=== PATIENT | female | born 1995 | race Caucasian/White ===

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

== ENCOUNTER 2017-06-29 05:43 | Inpatient (IN) | payer OTHER ==
[2017-06-29] VITALS (40 sets, daily range): BP systolic 106–148; BP diastolic 67–99; PULSE 60–102; TEMP 98.2–98.6
[~2017-06-29] VITALS: Ht 162.6 cm; Wt 72.7 kg
[~2017-06-29 05:43] MED LIST: BIRTH CONTROL; BIRTH CONTROL PO
[2017-06-29 07:41] LABS: BASO % 0.3 % (0.0-2.0); EOS # 0.1 (0.0-0.7); EOS % 0.5 % (0-4.0); GRAN # 8.9 (1.4-6.5); GRAN % 77.4 % (42.2-75.2); HEMOGLOBIN 12.7 g/dl (12.0-15.0); LYMPH # 1.6 (1.2-3.4); LYMPH % 13.4 % (20.0-51.0); MEAN CELL VOLUME 88 fl (80.0-95.0); MEAN CORPUSCULAR HEMOGLOBIN 31 pg (26.0-32.0); MEAN CORPUSCULAR HGB CONC 35 g/dl (33.0-37.0); MEAN PLATELET VOLUME 11.2 fl (7.4-10.4); MONO # 0.9 (0.1-0.6); MONO % 7.9 % (1.7-9.3); PLATELET COUNT 205 K/mm3 (130-400); RED BLOOD COUNT 4.16 M/mm3 (4.10-5.30); WHITE BLOOD COUNT 11.5 K/mm3 (4.8-10.8)
[2017-06-29 07:42] LABS: HEMATOCRIT 36.7 % (35.0-45.0)
[2017-06-29 07:53] LABS: ADJUSTED CALCIUM 9.3 mg/dL (8.4-10.2); ALBUMIN 3.3 gm/dL (3.5-5.0); BILIRUBIN,TOTAL 0.4 mg/dL (0.0-1.0); CALCIUM 8.7 mg/dL (8.4-10.2); CREATININE, serum 0.73 mg/dL (0.52-1.25); POTASSIUM 3.6 mmol/L (3.4-5.0); TOTAL PROTEIN 6.2 gm/dL (6.4-8.2)
[2017-06-29 09:56] LABS: COLLECTION METHOD CLEAN CATCH
[2017-06-29 10:08] LABS: PH 7 (5-8); SQUAMOUS EPITHELIAL None Seen /hpf; URINE APPEARANCE Clear; URINE BACTERIA None Seen /hpf; URINE BILIRUBIN Negative (NEGATIVE); URINE BLOOD Negative (NEGATIVE); URINE COLOR Yellow; URINE GLUCOSE Negative (NEGATIVE); URINE KETONE Negative (NEGATIVE); URINE LEUKOCYTE ESTERASE Negative (NEGATIVE); URINE PROTEIN(semi-quant) Negative (NEGATIVE); URINE RBC None Seen /hpf; URINE UROBILINOGEN Negative (NEGATIVE); URINE WBC 0-2 /hpf
[2017-06-30] VITALS: BP 122/72; PULSE 70; TEMP 98.4
[2017-06-30 04:00] VITALS: BP 121/63; PULSE 67; TEMP 98.3
[2017-06-30 07:46] VITALS: BP 96/52; PULSE 60; TEMP 97.1
[2017-06-30 16:10] VITALS: BP 111/67; PULSE 72; TEMP 97.6
[2017-06-30 20:25] VITALS: BP 113/65; PULSE 71; TEMP 98.1
[2017-07-01 08:16] VITALS: BP 111/62; PULSE 60; TEMP 97.3
[2017-07-01] MEDS ORDERED: IBU600 MG PO (09:29)
== END 2017-07-01 12:00 | disposition home or self-care (01) | DRG 774 ==
LOC: LDRO 05:43 → LDR 06:14 → OB 17:00
PROVIDERS: Obstetrics & Gynecology; Student in an Organized Health Care Education/Training Program
PROC: 10E0XZZ Delivery of Products of Conception, External Approach (ICD-10-PCS; principal; 2017-06-29)
PROC: 0HQ9XZZ Repair Perineum Skin, External Approach (ICD-10-PCS; 2017-06-29)
DX: O62.3 Precipitate labor (principal); O72.1 Other immediate postpartum hemorrhage; O77.0 Labor and delivery complicated by meconium in amniotic fluid; O70.0 First degree perineal laceration during delivery; Z3A.40 40 weeks gestation of pregnancy; Z37.0 Single live birth
CPT/HCPCS: J2210; J2590; J2795; J7120

== ENCOUNTER 2019-04-23 15:56 | Emergency (ER) | payer SELFPAY ==
[~2019-04-23] VITALS: Ht 162.6 cm; Wt 59.1 kg
[~2019-04-23 15:56] MED LIST changes: +IBU600 MG PO
[2019-04-23 16:44] VITALS: BP 92/51; TEMP 97.7
[2019-04-23] MEDS ORDERED: MIRENA52 MG IY (17:00)
[2019-04-23] MEDS ORDERED: ZOFRAN ODT8 MG PO (17:29)
[2019-04-23 18:54] VITALS: PULSE 94
== END 2019-04-23 18:54 | disposition home or self-care (01) ==
LOC: COL.ER 15:56
PROVIDERS: Emergency Medicine
DX: R11.2 Nausea with vomiting, unspecified (principal); Z79.1 Long term (current) use of non-steroidal anti-inflammatories (NSAID)
CPT/HCPCS: J1885; J2405; J7030

== ENCOUNTER 2019-08-20 18:02 | Emergency (ER) | payer OTHER ==
[~2019-08-20] VITALS: Ht 162.6 cm; Wt 58.6 kg
[~2019-08-20 18:02] MED LIST changes: +MIRENA52 MG IY; +ZOFRAN ODT8 MG PO
[2019-08-20 18:06] VITALS: TEMP 97.6
[2019-08-20 18:43] LABS: COLLECTION METHOD CLEAN CATCH
[2019-08-20 18:45] LABS: BASO # 0.1 (0.0-0.2); BASO % 0.5 % (0.0-2.0); EOS # 0.1 (0.0-0.7); GRAN # 7.1 (1.4-6.5); GRAN % 76.1 % (42.2-75.2); HEMATOCRIT 41.9 % (37.0-47.0); HEMOGLOBIN 14.1 g/dl (12.5-16.0); LYMPH # 1.4 (1.2-3.4); LYMPH % 15.3 % (20.0-51.0); MEAN CELL VOLUME 88 fl (80.0-100.0); MEAN CORPUSCULAR HEMOGLOBIN 30 pg (27.0-31.0); MEAN CORPUSCULAR HGB CONC 34 g/dl (33.0-37.0); MEAN PLATELET VOLUME 10.2 fl (7.4-10.4); MONO # 0.6 (0.1-0.6); MONO % 6.9 % (1.7-9.3); PLATELET COUNT 289 K/mm3 (130-400); RED BLOOD COUNT 4.75 M/mm3 (4.10-5.30); REDCELL DISTRIBUTION WIDTH-CV 13.4 % (11.5-14.5)
[2019-08-20 18:54] LABS: AMORPHOUS CRYSTAL Present /uL; MUCOUS Present /lpf; PH 7 (5-8); SQUAMOUS EPITHELIAL 0-2 /hpf; URINE APPEARANCE Cloudy; URINE BACTERIA Rare /hpf; URINE BILIRUBIN Negative (NEGATIVE); URINE BLOOD Negative (NEGATIVE); URINE COLOR Yellow; URINE GLUCOSE Negative (NEGATIVE); URINE KETONE Negative (NEGATIVE); URINE LEUKOCYTE ESTERASE Negative (NEGATIVE); URINE NITRATE Negative (NEGATIVE); URINE PROTEIN(semi-quant) Negative (NEGATIVE); URINE RBC 0-2 /hpf
[2019-08-20 18:59] LABS: ALANINE AMINOTRANSFERASE 15 U/L (9-52); ALBUMIN 4.8 gm/dL (3.5-5.0); ALKALINE PHOSPHATASE 60 U/L (50-136); ANION GAP 10 mmol/L (7-16); AST,SGOT 26 U/L (15-37); BILIRUBIN,TOTAL 0.5 mg/dL (0.0-1.0); BLOOD UREA NITROGEN 15 mg/dL (7-17); CALCIUM 9.7 mg/dL (8.4-10.2); CARBON DIOXIDE 27 mmol/L (22-30); CHLORIDE 104 mmol/L (98-107); CREATININE, serum 0.64 (0.52-1.25); GLUCOSE 119 mg/dL (74-106); LIPASE 42 U/L (23-300); POTASSIUM 3.9 mmol/L (3.4-5.0); SODIUM 141 mmol/L (137-145)
[2019-08-20 19:00] LABS: C-REACTIVE PROTEIN < 0.5 mg/dL (0.0-0.9)
[2019-08-20] MEDS ORDERED: PROTONIX 40MG T40 MG PO (21:13)
[2019-08-20 21:20] VITALS: BP 112/71; PULSE 81
== END 2019-08-20 21:30 | disposition home or self-care (01) ==
LOC: COL.ER 18:02
PROVIDERS: Emergency Medicine
DX: R10.11 Right upper quadrant pain (principal)
CPT/HCPCS: J2405; J3010; J7030; Q9967